=== PATIENT | female | born 2000 | race African-American/Black ===

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

== ENCOUNTER 2019-04-08 01:21 | Emergency (ER) | payer OTHER ==
[~2019-04-08] VITALS: Ht 170.2 cm; Wt 69.7 kg
[2019-04-08] MEDS ORDERED: TRILOSPRINTEC (01:28)
--- NOTE | 2019-04-08 01:51 | NUR ---
URINE SPECIMEN COLLECTED AND WALKED TO LAB. LONNIE CABRERA LADY, LAB TO BEDSIDE TO DRAW.
[2019-04-08 02:04] LABS: CULTURE INDICATED? NO; HCG UR SG 1.028 (1.003-1.030); MICROSCOPIC NOT IND
[2019-04-08 02:09] LABS: ALANINE AMINOTRANSFERASE 19 U/L (12-78); ALBUMIN 3.7 g/dL (3.4-5.0); ANION GAP 8 mmol/L (5-15); CALCIUM 9.3 mg/dL (8.5-10.1); CHLORIDE 108 mmol/L (98-107); CREATININE 0.97 mg/dL (0.55-1.02); MEAN CORPUSCULAR HEMOGLOBIN 31.4 pg (27.0-34.8); MEAN CORPUSCULAR HGB CONC 33.2 g/dL (32.4-35.8); MEAN CORPUSCULAR VOLUME 94.6 fL (80-100); MEAN PLATELET VOLUME 8.9 fL (7.4-10.4); PLATELET COUNT 289 x10^3/uL (130-400); RED BLOOD COUNT 4.11 x10^6/uL (3.82-5.3); RED CELL DISTRIBUTION WIDTH 13.1 % (9.6-15.2)
[2019-04-08 02:12] LABS: ALKALINE PHOSPHATASE 49 U/L (45-117); BILIRUBIN,TOTAL 0.1 mg/dL (0.2-1.0); TOTAL PROTEIN 7.6 g/dL (6.4-8.2)
[2019-04-08] MEDS ORDERED: ONDANSETRON ODT 4 MG ONE (02:13)
[2019-04-08] MEDS ORDERED: ONDANSETRON ODT 4 MG PO ONE (02:30)
[2019-04-08 02:34] LABS: BASOPHILS # (AUTO) 0.01 x10^3/uL (0-0.3); BASOPHILS % (AUTO) 0 % (0-1); EOSINOPHILS # (AUTO) 0.21 x10^3/uL (0-0.8); EOSINOPHILS % (AUTO) 3 % (1-7); LYMPHOCYTES # (AUTO) 2.82 x10^3/uL (1-6.1); LYMPHOCYTES % (AUTO) 39 % (22-44); MD SCAN; MONOCYTES # (AUTO) 0.61 x10^3/uL (0-1.4); MONOCYTES % (AUTO) 9 % (2-9); NEUTROPHILS # (AUTO) 3.52 x10^3/uL (1.8-8.0); NEUTROPHILS % (AUTO) 49 % (42-75)
[2019-04-08 03:13] VITALS: BP 119/74
== END 2019-04-08 03:14 | disposition home or self-care (01) ==
LOC: ED 01:46
DX: R10.31 Right lower quadrant pain (principal); R10.32 Left lower quadrant pain
CPT/HCPCS: 36415; 80053; 81003; 81025; 83690; 85025; 99283; Q0162

== ENCOUNTER 2021-01-23 15:40 | Emergency (ER) | payer OTHER ==
[~2021-01-23] VITALS: Ht 170.2 cm; Wt 63.3 kg
[~2021-01-23 15:40] MED LIST: TRILOSPRINTEC
[2021-01-23 15:52] VITALS: BP 133/94
--- NOTE | 2021-01-23 16:11 | NUR ---
while patient being roomed patient received call from father who told her she need to go [facility]. Patient then walked out from triage
--- NOTE | 2021-01-23 16:13 | NUR ---
patient discharged from system as left without being seen
== END 2021-01-23 16:14 | disposition left against medical advice (07) ==
LOC: ED 16:00
DX: R06.02 Shortness of breath (principal); J02.9 Acute pharyngitis, unspecified; R43.8 Other disturbances of smell and taste; Z53.21 Procedure and treatment not carried out due to patient leaving prior to being seen by health care provider
CPT/HCPCS: 93005